=== PATIENT | female | born 1945 | race Caucasian/White ===

== ENCOUNTER → 2017-04-30 | Emergency (ER) | payer OTHER ==
[~2017-04-30] VITALS: Ht 170.2 cm; Wt 79.0 kg
[~2017-04-30] MED LIST: AMLODIPINE BESYL5 MG PO; CARDIZEM CD120 MG PO; CELEBREX200 MG PO; Coumadin Daily Dose PO; DEXAMETHASONE4 MG PO; DIGOXIN125 MCG PO; DILTIAZEM 24HR120 MG PO; DOCUSATE SODIU100 MG PO; Feosol PO; IRON325 M1 PO; LEVOTHYROXINE100 MCG PO; LEVOTHYROXINE112 MCG PO; OMEGA 3-6-91200 MG PO; OMEGA-3 1,0001 EAC1 PO; OMEPRAZOLE20 MG PO; OXYCODONE HCL5 MG PO; Percocet 5/325,Endoc PO; SIMVASTATIN40 MG PO; Tirosint PO; VITAMIN D-32000 UNI1 PO; Vitamin D PO; XARELTO10 MG PO; XARELTO20 MG PO; Zocor PO; celeBREX PO
[2017-04-30 17:04] VITALS: BP 146/92
== END | disposition left against medical advice (07) ==
LOC: EME 14:21
DX: I10 Essential (primary) hypertension (principal); R51 Headache; R30.0 Dysuria; I48.91 Unspecified atrial fibrillation; Z79.01 Long term (current) use of anticoagulants; J44.9 Chronic obstructive pulmonary disease, unspecified; E03.9 Hypothyroidism, unspecified; Z87.891 Personal history of nicotine dependence
CPT/HCPCS: 81003; 99281; 99283